=== PATIENT | female | born 1985 | race African-American/Black ===

== ENCOUNTER 2019-09-11 06:18 | Inpatient (IN) | payer OTHER ==
--- NOTE | 2019-09-11 07:09 | History and Physical Report ---
History of Present Illness Date of examination: 09/11/19 Date of admission: 09/11/19 06:48 Chief complaint: Labor History of present illness: 34 year old presents to L&D in active labor. LMP 12/15/18. EDC 09/21/19. Patient received care at [facility] and she brings records with her. significant for the following: GDM (diet controlled), AMA, anemia (supplemented with iron). labs are as follows: O+, antibody screen negative, rubella immune, hepatitis B surface antigen negative, HIV negative, RPR nonreactive, chlamydia negative, gonorrhea negative, quad screen negative, 1 hour sugar test 259, GBS negative, hemoglobin A1C 5.4% and 5.6%. 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 denies: chlamydia, gonorrhea, hepatitis B, hepatitis C, herpes, HIV, syphilis, trichomonas Family/Genetic History: diabetes Social history: , lives with family, full code. denies: smoking, alcohol abuse, prescription drug abuse, IV drug use - Obstetrical History Expected Date of Delivery: 09/21/19 Actual Gestation: 38 Week(s) 4 Day(s) : 6 Para: 4 Hx # Term Pregnancies: 4 Number of Pregnancies: 0 Spontaneous Abortions: 1 Induced : 0 Number of Living Children: 4 Review of Systems All systems: negative (contractions) - Physical Exam Abdomen: Positive: normal appearance, soft. Negative: distention, tenderness, guarding, rigidity Genitourinary (Female): Positive: normal external genitalia, normal perenium. Negative: perineal/vulvar lesions (no lesions seen on careful exam with bright light upon admission) Vagina: Positive: normal moisture Uterus: Positive: enlarged (S=D) Anus/Rectum: Positive: normal perianal skin Extremities: Positive: normal. Negative: tenderness, edema - Obstetrical FHR: category 1 Uterine Contraction Monitor Mode: External Cervical Dilatation: 8 Cervical Effacement Percentage: 100 station: -1 Uterine Contraction Pattern: Regular Uterine Contraction Intensity: Moderate Results All other labs normal. Assessment and Plan A: at 38 weeks, 4 days gestation. Active labor with advanced cervical dilation. GBS negative. GDM, diet controlled. P: Admit. Continuous EFM. Anticipate vaginal .
[2019-09-11 07:22] LABS: Hematocrit 38.4 % (30.3-42.9); Mean Corpuscular HGB Conc 34 % (30-34); Mean Corpuscular Volume 92 fl (79-97); Red Cell Distribution Width 18.4 % (13.2-15.2)
[2019-09-11] MEDS ORDERED: LACTATED RINGERS 1,000 ML IV SCH (07:30)
[2019-09-11] MEDS ORDERED: SUBLIMAZE IV PRN (07:30)
[2019-09-11] MEDS ORDERED: BRETHINE SUB-Q PRN (07:30)
[2019-09-11] MEDS ORDERED: XYLOCAINE 2% INFILTRATI NR (07:30)
[2019-09-11] MEDS ORDERED: ZOFRAN IV PRN (07:30)
[2019-09-11 08:49] LABS: Platelet Count 174 K/mm3 (140-440)
[2019-09-11] MEDS ORDERED: CYTOTEC PR ONE (09:54)
[2019-09-11] MEDS ORDERED: CYTOTEC ONE (09:58)
[2019-09-11] MEDS: PITOCin/NS 20 UNIT/1000ML DRIP 20 UNITS/1,000 ML BAG IV SCH ×2 (10:05→11:39)
[2019-09-11] MEDS ORDERED: NORCO 5/325 PO PRN (10:14)
[2019-09-11] MEDS ORDERED: LANSINOH TP PRN (10:14)
[2019-09-11] MEDS ORDERED: MILK OF MAGNESIA PO PRN (10:14)
[2019-09-11] MEDS ORDERED: TUCKS PAD TP PRN (10:14)
[2019-09-11] MEDS ORDERED: BENADRYL PO PRN (10:14)
--- NOTE | 2019-09-11 10:33 | Procedure Note ---
OB Delivery Note - Delivery Date of Delivery: 09/11/19 Surgeon: WILLEM SOTELO Estimated blood loss: other (350 cc) - Vaginal Delivery presentation: vertex Delivery position: OA Intrapartum events: none Delivery induction: none Delivery monitor: external FHT, external uterine Delivery placenta: spontaneous Delivery cord: 3 umbilical vessels Episiotomy: none Delivery laceration: none Anesthesia: none Delivery comments: Spontaneous vaginal delivery at 09:49 of liveborn male weighing 8 lb. 2 oz. over intact perineum with apgars of 8/9. Baby placed immediately skin to sk in with mom after delivery. Spontaneous cry and respirations. 3 vessel cord double clamped and cut. Spontaneous delivery of intact placenta and membranes at 09:53. EBL 350 cc. Pitocin to IV fluids after delivery of placenta and Cytotec 800 mcg given rectally to control bleeding. Fundus firmed and noted to be in midline position. No lacerations noted. Vaginal sweep negative. Sponge count correct. Mother and baby stable.
[2019-09-11] MEDS ORDERED: SODIUM CHLORIDE FLUSH SYRINGE 10 ML IV NR (11:00)
[2019-09-11] MEDS: PRENATAL VITAMIN PO SCH (14:14)
[2019-09-11] MEDS: IBUPROFEN PO SCH (14:14)
[2019-09-11] MEDS: COLACE PO SCH (22:25)
[2019-09-11] MEDS: FEOSOL PO SCH (22:25)
[2019-09-11 23:42] LABS: Hematocrit 31.6 % (30.3-42.9); Hemoglobin 10.5 gm/dl (10.1-14.3)
[2019-09-12] MEDS: IBUPROFEN PO SCH ×2 (00:08→06:14)
[2019-09-12] MEDS ORDERED: BOOSTRIX IM ONE (06:00)
[2019-09-12] MEDS: FEOSOL PO SCH (10:01)
[2019-09-12] MEDS: PRENATAL VITAMIN PO SCH (10:01)
[2019-09-12] MEDS: COLACE PO SCH (10:01)
--- NOTE | 2019-09-12 10:23 | Progress Note ---
Assessment and Plan - Patient Problems (1) Status post normal vaginal delivery Current Visit: Yes Status: Acute Plan to address problem: PPD 1 - stable Continue routine orders Discharge to home today Follow up at [facility] as needed or in 6 weeks for exam Subjective - Subjective Date of service: 09/12/19 Principal diagnosis: PPD #1; s/p Interval history: see H&P and OB Delivery Procedure Note Patient reports: appetite normal, voiding normally, pain well controlled, ambulating normally, no dizzy ambulation [place]: doing well, other (breast and bottle feeding) Objective - Vital Signs Latest vital signs: Vital Signs Temp Pulse Resp BP BP Pulse Ox 09/12/19 09:12 97.9 F 93 H 18 100/55 98 09/12/19 07:14 18 09/12/19 00:13 98.2 F 89 18 106/61 98 09/11/19 20:42 98.2 F 82 20 98/62 98 09/11/19 16:13 97.5 F L 76 18 98/58 98 09/11/19 12:29 98.1 F 88 20 106/64 97 09/11/19 11:56 90 121/69 09/11/19 10:58 98.6 F 83 109/70 09/11/19 10:57 83 109/70 Intake and Output 09/11/19 09/12/19 09/12/19 23:59 07:59 15:59 Intake Total 600 360 Output Total 300 Balance 300 360 Intake: Oral 600 Intake, Free Water 360 Output: Urine 300 Void 300 Other: Total, Intake Amount 240 Total, Output Amount 300 # Voids Void 1 - Exam Breasts: Present: normal Cardiovascular: Present: Regular rate Lungs: Present: Clear to auscultation Abdomen: Present: normal appearance, soft Vulva: both: normal Uterus: Present: normal, firm, fundal height below umbilicus Extremities: Present: normal Comments: small lochia
--- NOTE | 2019-09-12 10:29 | Discharge Summary ---
Providers - Providers Date of Admission: 09/11/19 06:48 Date of discharge: 09/12/19 Attending physician: RAFAELA ROMO MD Primary care physician: [facility] [employer] Hospitalization Reason for admission: active labor, IUP at term Delivery: Episiotomy: none Laceration: none Other procedures: none complications: none Discharge diagnosis: IUP at term delivered baby: male Hospital course: Uncomplicated Condition at discharge: Stable Disposition: DC-01 TO HOME OR SELFCARE - Discharge Diagnoses (1) Status post normal vaginal delivery Status: Acute Plan - Provider Discharge Summary Activity: routine, no sex for 6 weeks, no heavy lifting 4 weeks, no strenuous exercise Diet: routine Instructions: routine Additional instructions: [] Smoking cessation referral if applicable(refer to patient education folder for contact #) [] Refer to [facility]'s [facility] Center Booklet Call your doctor immediately for: * Fever > 100.5 * Heavy vaginal bleeding ( >1 pad per hour) * Severe persistent headache * Shortness of breath * Reddened, hot, painful area to leg or breast * Drainage or odor from incision. * Keep incision clean and dry at all times and follow doctor's instructions regarding bathing/showering - Follow up plan Follow up: PRIMARY CARE, [Primary Care Provider] - 6 Weeks (Follow up at [facility] as needed or in 6 weeks for exam)
[2019-09-12] MEDS ORDERED: AFLURIA QUAD 2019-2020 (3YR UP) IM ONE (12:00)
[2019-09-12 18:44] VITALS: BP 98/54
== END 2019-09-12 18:05 | disposition home or self-care (01) | DRG 807 ==
LOC: TRG 06:18 → LD 06:48 → OB 12:19
PROVIDERS: ADMIT Obstetrics & Gynecology; ATTEND Obstetrics & Gynecology
PROC: 10E0XZZ Delivery of Products of Conception, External Approach (ICD-10-PCS; principal; 2019-09-11)
PROC: 3E0234Z Introduction of Serum, Toxoid and Vaccine into Muscle, Percutaneous Approach (ICD-10-PCS; 2019-09-12)
DX: O24.420 Gestational diabetes mellitus in childbirth, diet controlled (principal); Z37.0 Single live birth; Z3A.38 38 weeks gestation of pregnancy; Z83.3 Family history of diabetes mellitus; Z23 Encounter for immunization
CPT/HCPCS: 36415; 85014; 85018; 85027; 86592; 86850; 86900; 86901; 90471; 90686; 90715; G0378; J2590; J3010; J7120